=== PATIENT | male | born 1960 | race Hispanic/Latino ===

== ENCOUNTER 2018-12-07 02:19 | Inpatient (IN) | payer BC ==
[2018-12-07] MEDS ORDERED: Acetaminophen 325 MG TAB PO PRN (04:40)
[2018-12-07] MEDS ORDERED: Ondansetron ODT 4 MG TAB PO PRN (04:40)
--- NOTE | 2018-12-07 05:13 | HP ---
CHIEF COMPLAINT: Calf cramps and pain. HISTORY OF PRESENT ILLNESS: Mr. Romero is a 58-year-old male with past medical history of hypertension, ? substance abuse is being transferred from [facility] after he presenting there with calf and leg pain. Workup in the emergency room, the patient was found to be in acute renal failure with a creatinine of more than 5, CK is more than 5. Urine drug screen is positive for amphetamine, methamphetamine, and cocaine. The patient was started on IV fluids. The patient is being admitted to hospital for further management. PAST MEDICAL HISTORY: Hypertension. PAST SURGICAL HISTORY: Carpal tunnel surgery. SOCIAL HISTORY: He drinks every day, less than 5 drinks per day, he currently uses methamphetamine. He also smokes cigarettes. FAMILY HISTORY: Reviewed and noncontributory. HOME MEDICATIONS: Please see home medication reconciliation form for updated medications. ALLERGIES: NO KNOWN ALLERGIES. REVIEW OF SYSTEMS: Review of 14 systems is negative except what is mentioned in history of present illness. PHYSICAL EXAMINATION: GENERAL: The patient is awake, alert, does not appear to be in acute distress. VITAL SIGNS: Blood pressure 127/85, pulse is 79, respiratory rate is 18, temperature 97.6, pulse oximetry 98% on room air. HEAD AND NECK: Normocephalic and atraumatic. Neck is supple. No JVD. CHEST: Fair bilateral air entry. HEART: S1, S2. Regular. ABDOMEN: Soft, nontender. Bowel sounds are present. NEUROLOGIC: Awake, alert, oriented x3. PSYCH: Normal mood. EXTREMITIES: No clubbing or cyanosis. LABORATORY DATA: As mentioned above in the history of present illness. ASSESSMENT: 1. Acute renal failure. 2. Lactic acidosis. 3. Leukocytosis, no obvious signs of infection. 4. Hypertension. 5. Substance abuse, methamphetamine abuse. 6. Cocaine use, the patient denies using cocaine, but urine drug screen is positive. PLAN: 1. Admit. 2. Continue IV fluid hydration. 3. Monitor kidney function and urine output. 4. Reconcile home medications. 5. DVT prophylaxis, early ambulation/SCD. 6. Expected length of stay 2 midnights or more. Job ID: [id number]
[2018-12-07 05:52] VITALS: BMI 33.0
[2018-12-07] MEDS: Sodium Chloride 0.9% 1,000 ML IV SCH ×3 (06:19→20:26)
[2018-12-07 07:20] LABS: Lactic Acid 0.7 mmol/L (0.5-2.2)
--- NOTE | 2018-12-07 16:19 | PDOC.HOSPP ---
- Subjective Encounter Date: 12/07/18 Encounter Time: 16:10 Subjective: f/u for LAURA, rhabdomyolysis and polysubstance abuse. Feels better overall and making urine. Appetite good. - Objective Vital Signs & Weight: Vital Signs (12 hours) Temp Pulse Resp BP Pulse Ox 12/07/18 16:00 98.4 F 70 20 122/71 95 12/07/18 12:05 98.3 F 74 16 112/68 95 12/07/18 08:00 97.7 F 69 18 121/69 97 12/07/18 05:30 97.9 F 66 18 131/87 98 12/07/18 05:25 98 Weight Weight 211 lb Additional Labs: Laboratory Tests 12/07/18 12/07/18 03:01 06:48 Lactic Acid 3.4 H 0.7 Laboratory Tests 12/07/18 12/07/18 12/07/18 00:45 00:45 01:35 WBC 17.2 H Neutrophils % 81.2 H BUN 48 H Creatinine 5.52 H Creatine Kinase 537 H Ur Amphetamines Screen Detected H U Methamphetamines Scrn Detected H U Cocaine Metab Screen Detected H Hospitalist ROS - Medication Medications: Active Medications Generic Name Dose Route Start Last Admin Trade Name Freq PRN Reason Stop Dose Admin Sodium Chloride 1,000 mls @ 125 mls/hr 12/07/18 04:45 12/07/18 14:40 Normal Saline 0.9% IV 1,000 mls .Q8H DEEPAK Administration - Exam General Appearance: NAD Eye: PERRL, anicteric sclera ENT: normocephalic atraumatic, no oropharyngeal lesions Neck: supple, symmetric, no JVD, no thyromegaly, no lymphadenopathy Heart: RRR, no murmur, no gallops, no rubs, normal peripheral pulses Respiratory: CTAB, no wheezes, no rales, no ronchi, normal chest expansion Gastrointestinal: soft, non-tender, non-distended, normal bowel sounds, no palpable masses Extremities: no cyanosis, no clubbing Skin: normal turgor, no lesions Neurological: cranial nerve grossly intact, no new deficit Musculoskeletal: normal tone, normal strength Psychiatric: normal affect, A&O x 3 Hosp A/P (1) LAURA (acute kidney injury) Code(s): N17.9 - ACUTE KIDNEY FAILURE, UNSPECIFIED Status: Acute Plan: Continue IVF's, likely multifactorial including substance abuse, serial creatinine (2) Polysubstance abuse Code(s): F19.10 - OTHER PSYCHOACTIVE SUBSTANCE ABUSE, UNCOMPLICATED Status: Acute Plan: Substance abuse/rehab resources (3) Rhabdomyolysis Code(s): M62.82 - RHABDOMYOLYSIS Status: Acute Plan: Continue IVF's, serial CPK (4) Lactic acidosis Code(s): E87.2 - ACIDOSIS Status: Acute Plan: Secondary to #1, improved with IVF's - Plan plan discussed w/ family, foster care social worker, out of bed/ambulate, DVT proph w/SCDs Stable currently Continue IVF's Avoid nephrotoxic meds and limit contrast exposure Substance abuse resources OOB/ambulate AM lab: BMP, CBC, CPK
[2018-12-08] MEDS: Sodium Chloride 0.9% 1,000 ML IV SCH ×2 (05:20→12:37)
[2018-12-08 06:41] LABS: #Eosinphils 0.1 thou/uL (0.0-0.7); #Lymphocytes 2.2 thou/uL (1.20-3.40); #Monocytes 0.6 thou/uL (0.11-0.59); #Neutrophils 3.3 thou/uL (1.40-6.50); %Basophils 0.8 % (0.0-1.0); %Eosinophils 2.1 % (0.0-10.0); %Lymphocytes 34.9 % (21.0-51.0); %Monocytes 9.3 % (0.0-10.0); Hemoglobin 12.6 g/dL (14.0-18.0); Mean Corpuscular HGB CONC 34.4 g/dL (32.0-36.0); Mean Corpuscular Hemoglobin 32.8 pg (27.0-31.0); Mean Corpuscular Volume 95.3 fL (78.0-98.0); Mean Platelet Volume 8.3 fL (7.4-10.4); Platelet Count 187 thou/uL (130-400); RBC Distribution Width 11.4 % (11.5-14.5); Red Blood Cell (RBC) Count 3.84 mill/uL (4.70-6.10); White Blood Cell (WBC) Count 6.2 thou/uL (4.8-10.8)
[2018-12-08 07:05] LABS: Anion Gap 9 mmol/L (10-20); BUN (Urea Nitrogen) 34 mg/dL (8.4-25.7); CK (CPK) 512 U/L (30-200); Calc. Creatinine Clearance 84 mL/min (70-130); Carbon Dioxide 23 mmol/L (22-29); Chloride 108 mmol/L (98-107); Estimated GFR-MDRD 56; Glucose 102 mg/dL (70-105); Potassium 4.3 mmol/L (3.5-5.1); Sodium 136 mmol/L (136-145)
[2018-12-08 11:58] VITALS: BP 131/75; TEMP 98.3
--- NOTE | 2018-12-08 19:28 | DIS ---
DATE OF ADMISSION: 12/07/2018 DATE OF DISCHARGE: 12/08/2018 DISCHARGE DIAGNOSES: 1. Acute kidney injury, multifactorial, resolving. 2. Polysubstance abuse. 3. Acute rhabdomyolysis with acute kidney injury, improved. 4. Lactic acidosis secondary to #1, improved. CONSULTATIONS: None. PERTINENT LABORATORY AND X-RAY FINDINGS: Creatinine ranged between 1.33 to 5.52. Estimated GFR ranged between 11 to 56. Carbon dioxide level 23. Lactic acid level ranged between 0.7 to 3.4. Total CK ranged between 512 to 537. CBC showed a white blood cell count of 6.2, hemoglobin 13, hematocrit 37, platelet count 187. Portable chest x-ray dated 12/07/2018, showed no acute cardiopulmonary process. HOSPITAL COURSE: The patient was initially admitted to the medical floor after presenting with lower extremity cramping and myalgias with an associated creatinine of 5.52. The patient's drug screen was positive for methamphetamines, amphetamines, and cocaine. The patient was placed on IV fluids and given general supportive management. The patient was noted with associated lactic acidosis and rhabdomyolysis due to the substance abuse and dehydration. Serial monitoring of the creatinine showed overall improvement and stabilization with IV fluids and the patient clinically stabilized with supportive care. The patient was cautioned regarding ongoing substance abuse and its ramifications for overall health. I have examined the patient at the time of discharge and discussed followup instructions. The patient verbalizes understanding and in agreement, ready for discharge on 12/08/2018. DISCHARGE MEDICATIONS: Reviewed and negative. FOLLOWUP: The patient may follow up with the [facility] and [facility] after discharge. CONDITION ON DISCHARGE: Stable. ACTIVITY: Ad-epifanio. DIET: Heart healthy. CODE STATUS: Full. DISPOSITION: Home on 12/08/2018. TIME SPENT: Total time preparing and coordinating discharge 32 minutes. Job ID: [id number]
--- NOTE | 2018-12-10 12:45 | EKG ---
Test Reason : Blood Pressure : / mmHG Vent. Rate : 075 BPM Atrial Rate : 075 BPM P-R Int : 202 ms QRS Dur : 096 ms QT Int : 434 ms P-R-T Axes : 036 -03 021 degrees QTc Int : 484 ms Normal sinus rhythm Possible Left atrial enlargement Left ventricular hypertrophy Prolonged QT Abnormal ECG Confirmed by AVERY JARA D.O. ([id number]), acquisitions editor JOHNNY HENSLEY ([id number]) on 12/10/2018 12:44:55 PM Referred By: Confirmed By:AVERY JARA D.O.
== END 2018-12-08 15:52 | disposition home or self-care (01) | DRG 918 ==
LOC: ERS 02:19 → T4-A 05:21
PROVIDERS: ADMIT Internal Medicine; ATTEND Internal Medicine
DX: T43.621A Poisoning by amphetamines, accidental (unintentional), initial encounter (principal); N17.9 Acute kidney failure, unspecified; E87.2 Acidosis; M62.82 Rhabdomyolysis; I10 Essential (primary) hypertension; F17.210 Nicotine dependence, cigarettes, uncomplicated; D72.829 Elevated white blood cell count, unspecified; F19.10 Other psychoactive substance abuse, uncomplicated; F14.90 Cocaine use, unspecified, uncomplicated; F15.10 Other stimulant abuse, uncomplicated; Y92.9 Unspecified place or not applicable
CPT/HCPCS: 36415; 80048; 82550; 83605; 84484; 85025; 93005; 96360; 96361